=== PATIENT | female | born 1935 | race Caucasian/White ===

== ENCOUNTER 2018-01-24 06:29 | Observation (INO) | payer OTHER, BC ==
[2018-01-20 10:27] VITALS: BMI 31.0
[~2018-01-24] VITALS: Ht 172.7 cm; Wt 93.4 kg
[2018-01-24] VITALS (10 sets, daily range): BP systolic 121–178; BP diastolic 64–84; PULSE 58–65; TEMP 36.4–36.6; O2SAT 94–100; BMI 31.0
[~2018-01-24 06:29] MED LIST: ACET-1311 PO; BISA10SU38 PR; CARV12.52 PO; CEFAZOLIN 1000MG IV PUSH 7.5 ML IV SCH; CEFAZOLIN 2000MG IV PUSH 15 ML IV SCH; FENT75DI2 EX; FURO80TA63 PO; LEVO88TA3 PO; LNX125 PO; LVMI SC; MISCCAP80 PO; MOMLX PO; NITR0.4S UT; NVLG SC; PATIENT'S ALLERGY INFO NEEDS ENTERED SCH; PIPE1INJ IV; SENN-65 PO; SODIENE PR; SODIUM CHLORIDE 0.9% 1000ML 1,000 ML IV SCH; SPR25 PO; VALS320T PO; WARF2TAB PO; vancomycin hcl IV
[2018-01-24 07:14] LABS: INR 1.2 (0.9-1.1); PTT PATIENT 29.9 SECONDS (21.0-31.0)
[2018-01-24] MEDS ORDERED: vancomycin IV (07:16)
[2018-01-24 07:41] LABS: CALCIUM 8.8 mg/dl (8.5-10.1); CREATININE 2.56 mg/dl (0.60-1.20)
[2018-01-24] MEDS ORDERED: CEFAZOLIN SOD 2000MG/15 ML IV PUSH IV ONE (07:54)
--- NOTE | 2018-01-24 08:16 | History and Physical ---
History & Physical Date Jan 24, 2018. Chief Complaint Gangrene of her left second toe History of Present Illness The patient is a 82 year old female who has developed gangrene of her left second toe. It started two weeks prior and has worsened. She does complain of toe pain of the toe. She is on Vanco. 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 She also has chronic edema of the left leg. Vitals Vital Signs Past 12 Hours Date Time Temp Pulse Resp B/P (MAP) Pulse Ox O2 Delivery O2 Flow Rate FiO2 01/24/18 07:00 36.5 62 18 165/83 96 Room Air Allergies Coded Allergies: Latex (Verified Allergy, Unknown, unknown, 01/24/18) Statins (Unverified Allergy, Unknown, MYALGIAS, 01/24/18) PER PRE-ANESTHESIA QUESTIONNAIRE Uncoded Allergies: DARK GREEN VEGETABLES (Allergy, Unknown, unknown, 01/20/18) Home Medications Scheduled Carvedilol (Coreg), 1 TAB PO BID Digoxin (Digoxin), 1 TAB PO HS Fentanyl (Fentanyl), 1 PATCH EX q3days Furosemide (Lasix), 80 MG PO QAM Insulin Aspart (Novolog), 4 UNITS SC ACHS Insulin Detemir (Levemir), 40 UNITS SC HS Levothyroxine Sodium (Levothyroxine Sodium), 1 TAB PO QAM Piperacillin Sodium-Tazobactam (Piperacillin Sodium/Tazob), 3.375 GM IV TID Probiotic Product (Probiotic), 1 CAP PO BID Spironolactone (Spironolactone), 1 TAB PO QAM Valsartan (Diovan), 320 MG PO QAM Warfarin Sodium (Coumadin), 1 TAB PO HS [vancomycin ], 1,000 MG IV Q12 [vancomycin hcl], 1,000 MCG IV Q12 Scheduled PRN Acetaminophen (Tylenol), 650 MG PO Q4 PRN for Pain or Fever Bisacodyl (Dulcolax), 1 SUPP MA QD PRN for Constipation Magnesium Hydroxide (Milk of Magnesia), 30 ML PO QD PRN for Constipation Nitroglycerin (Nitrostat), 0.4 MG UT PRN PRN for Chest Pain Senna/Docusate Sod (Senokot S), 2 TAB PO QD PRN for Constipation Sodium Phosphate/Biphosphate (Fleet Enema), 1 EA MA DAILY PRN for Constipation Surgical / Medical History Hx Cardiac Surgery: Yes (pacemaker ) Hx Abdominal Surgery: Yes (cholecystectomy; NAM) Hx Cancer Surgery: Yes (total hyster) Hx Thoracic Surgery: No Hx Orthopedic: No Hx Urinary Tract Surgery: No HX Other Surgery: No Past Medical/Surgical History: Diabetes, High Cholesterol, Hypertension, Pacemaker, Thrombophlebitis, Thyroid Disease, Other (mitral regurg) Social History Smoking Status: Never Smoker Hx Tobacco Use In Past Year?: No Hx Alcohol Use - Type & Amnt: No Hx Substance Use -Type & Amnt: No Review of Systems Constitutional: No chills, No diaphoresis, No fever, No malaise, No weakness, No weight gain, No weight loss, No sweats, No fatigue, No problem reported Respiratory: No cough, No cyanosis, No VELASQUEZ, No hemoptysis, No orthopnea, No PND , No short of breath, No sputum production, No stridor, No wheezing, No dyspnea , No problem reported Cardiovascular: No chest pain, No chest tightness, No chest pressure, No palpitations, No syncope, No diaphoresis, No edema, No intermittent claudication , No orthopnea, No cyanosis, No mumur, No lightheadedness, No paroxysmal nocturnal dyspnea, No problem reported Gastrointestinal: No abdominal pain, No constipation, No diarrhea, No nausea, No vomiting, No anorexia, No appetite changes, No belching, No flatulence, No food intolerance, No hematemesis, No hemorrhoids, No hematochezia, No stool changes, No heartburn, No indigestion, No dysphagia, No rectal bleeding, No problem reported Genitourinary - Female: No dysmenorrhea, No dysuria, No hematuria, No hesitancy , No menorrhagia, No metrorrhagia, No , No rash, No urinary frequency, No urinary incontinence, No urinary retention, No urinary urgency, No vulvadynia , No vaginal bleeding, No vaginal discharge, No vaginal itching, No breast problems, No problem reported Musculoskeletal: No back pain, No gout, No joint pain, No joint swelling, No muscle pain, No muscle stiffness, No muscle weakness, No neck pain, No problem reported Neurologic: No dizziness, No weakness, No headache, No lethargy, No numbness, No paresthesia, No pre-existing deficit, No seizures, No tics, No tingling, No tremors, No vertigo, No memory loss, No LOC, No problem reported Psychiatric: No anxiety, No alcohol abuse, No auditory hallucinations, No depression, No drug abuse, No homicidal ideation, No mood changes, No suicidal ideation, No visual hallucinations, No problem reported Physical Exam Constitutional: General Apperance: overweight Level of Distress: NAD Ambulation: limited ambulation Psychiatric: Mental Status: active & alert, normal mood, normal affect Orientation: oriented except where noted, to time, to place, to person Memory: recent memory normal, remote memory normal Lungs: Auscultation: breath sounds normal Cardiovascular: Heart Auscultation: RRR Peripheral Pulses: Radial Pulse: normal on the left, normal on the right Femoral Pulse: normal on the left, normal on the right Posterior Tibialis Pulse: absent on the left, absent on the right Dorsalis Pedis Pulse: absent on the left, absent on the right Abdomen: Inspection & Palpation: soft Musculoskeletal: normal Extremities: Upper Right: no cyanosis, no edema, no varicosities, no palpable cord, no clubbing, no ulcers, no mottling Upper Left: no cyanosis, no edema, no varicosities, no palpable cord, no clubbing, no ulcers, no mottling Lower Right: no cyanosis, no edema, no varicosities, no palpable cord, no clubbing, no ulcers, no mottling Lower Left: gangrene (2nd toe and discoloration third toe. amp of first toe ) Neurologic: Cranial Nerves: grossly intact Sensation: grossly intact Assessment and Plan Imp: Gangrene of left second and third toe Plan: Patient admitted for a left foot TMA. I have discussed the risks options and benefits of the procedure with the patient. The patient understands the risks options and benefits and agrees to the procedure.
[2018-01-24] MEDS ORDERED: LIDOCAINE HCL 1% 20 ML VIAL ONE (09:16)
[2018-01-24] MEDS ORDERED: BUPIVACAINE/EPINEPHRINE 0.5% MPF 1:200,000 30 ML VIAL ONE (09:16)
[2018-01-24] MEDS ORDERED: PHENYLEPHRINE 100MCG/ML 5ML SYR ONE (09:26)
[2018-01-24] MEDS ORDERED: FENTANYL CITRATE INJ 50 MCG/1 ML 2 ML VIAL ONE ×2 (09:26→13:50)
[2018-01-24] MEDS ORDERED: PROPOFOL IV EMULSION 10 MG/ML 20 ML VIAL IV ONE (09:26)
[2018-01-24] MEDS ORDERED: ONDANSETRON INJ 2 MG/ML 2 ML VIAL ONE (09:26)
[2018-01-24] MEDS ORDERED: BUPIVACAINE 0.5 % 5 MG/1 ML PF 10ML VIAL ONE (09:32)
--- NOTE | 2018-01-24 09:40 | History & Physical Bridge Note ---
H&P Re-Evaluation Bridge Note: I have examined the patient, reviewed the History & Physical and in the interval since the performance of the History & Physical I have noted the following changes of clinical significance: No changes noted
[2018-01-24] MEDS ORDERED: DEXTROSE 50% 50 ML SYR ONE (12:02)
[2018-01-24] MEDS ORDERED: NURSING VERBAL MED ORDER STA (12:09)
[2018-01-24] MEDS ORDERED: LIDOCAINE HCL 2% 2 ML VIAL (20MG/ML) ONE (13:03)
--- NOTE | 2018-01-24 13:25 | [facility] Post Operative Brief Note ---
Immediate Operative Summary Operative Date Jan 24, 2018. Pre-Operative Diagnosis Gangrene of Left second, third toes. Post-Operative Diagnosis Gangrene of left 2nd and 3rd toes Procedure(s) Performed Left Transmetatarsal Amputation Surgeon Dr. David Swenson Fish Icer Surgeon(s) none Estimated Blood Loss 50mL Findings Consistent with Post-Op Diagnosis Specimens Permanent: A. Left 2nd, 3rd, 4th, 5th metatarsals and bone and tissue. Drains None Anesthesia Type General Complication(s) none Disposition Accompanied Pt To Recover: no Disposition: Recovery Room / PACU
[2018-01-24] MEDS ORDERED: D5W AND 1/2NSS 1,000 ML IV SCH (13:36)
[2018-01-24] MEDS ORDERED: MAGNESIUM HYDROXIDE SUSP 30 ML UDC PO PRN (13:45)
[2018-01-24] MEDS ORDERED: DOCUSATE SODIUM/SENNA 50/8.6MG TAB PO PRN (13:45)
[2018-01-24] MEDS ORDERED: ACETAMINOPHEN 325 MG TAB PO PRN (13:45)
[2018-01-24] MEDS ORDERED: MoRPHine SULFATE 4 MG/ML 1 ML CARP\\VIAL IV PRN (13:45)
[2018-01-24] MEDS ORDERED: GLUCAGON FOR INJ 1 MG VIAL SQ PRN (13:45)
[2018-01-24] MEDS ORDERED: DEXTROSE 50% 50 ML SYR IV PRN (13:45)
[2018-01-24] MEDS ORDERED: NITROGLYCERIN 0.4 MG SL PER TAB CHARGE UT PRN (13:45)
[2018-01-24] MEDS ORDERED: GLUCOSE 10 TABS/TUBE PO PRN (13:45)
[2018-01-24] MEDS ORDERED: BISACODYL 10 MG SUPP PR PRN (13:45)
[2018-01-24] MEDS ORDERED: GLUCOSE 40% GEL 15 GM TUBE PO PRN (13:45)
[2018-01-24] MEDS ORDERED: ONDANSETRON INJ 2 MG/ML 2 ML VIAL IV PRN ×2 (13:45→14:00)
--- NOTE | 2018-01-24 13:48 | [facility] Operative Report ---
Operative Report Operative Date Jan 24, 2018. Pre-Operative Diagnosis Gangrene of Left second, third toes. Post-Operative Diagnosis Gangrene of left 2nd and 3rd toes Procedure(s) Performed Left Transmetatarsal Amputation Surgeon Dr. David Swenson Science Professor Surgeon(s) none Estimated Blood Loss 50mL Findings Gangrenous changes of the second and third toe of the left foot along with osteomyelitis of the toes and head of the metatarsals. Specimens Permanent: A. Left 2nd, 3rd, 4th, 5th metatarsals and bone and tissue. Drains None Anesthesia Type General Complication(s) none Disposition no Recovery Room / PACU Indications This is an 82-year-old female with a significant peripheral vascular occlusive disease of the left lower extremity. She developed gangrene of the second and third toes of the left foot along with possible osteomyelitis of the toes. She recently underwent a great toe amputation left foot. Transmetatarsal amputation was recommended.I have discussed the risks options and benefits of the procedure with the patient. The patient understands the risks options and benefits and agrees to the procedure. Description of Procedure The patient was taken to the operating room placed in the supine position. The left foot was then prepped and draped in a sterile manner after general anesthesia was accomplished. An incision was then made just above the base of the remaining 4 toes. This was carried down along the plantar surface of the foot again just above the base of the toes. The periosteum was then pushed backward off the metatarsals. This was done after the metatarsals were dissected free from the surrounding tissue. The metatarsal were then transected using the power saw. All 4 metatarsal transected areas were in the area of very hard bone. The head of the second metatarsal and a small area of the third metatarsal appeared to be very soft bone. Once these were all removed adequate hemostasis was obtained. The wound was then closed in layers using 2-0 Vicryl for the deeper layers of 3-0 Vicryl for the subtenon's layer and anjelica for the skin. Sterile dressings were then applied to the wound. The patient left the operation room in satisfactory condition and tolerated the procedure well. All needle and sponge counts were correct at the end of the procedure. I attest to the content of the Intraoperative Record and any orders documented therein. Any exceptions are noted below.
[2018-01-24] MEDS ORDERED: ATROPINE SULFATE 0.1 MG/ML 5ML SYR IV PRN (14:00)
[2018-01-24] MEDS ORDERED: FENTANYL CITRATE INJ 50 MCG/1 ML 2 ML VIAL IV PRN (14:00)
[2018-01-24] MEDS ORDERED: PIPERACILLIN/TAZOBACTAM 4.5 GM/100ML D5W IV SCH (14:00)
[2018-01-24] MEDS ORDERED: EpHEDrine SULFATE INJ 50 MG/ML AMP IV PRN (14:00)
--- NOTE | 2018-01-24 14:15 | Anesthesiology Progress Note ---
Anesthesia Post Op Note Date & Time Jan 24, 2018 at 14:15 Vital Signs Pain Intensity: 5 Vital Signs Past 12 Hours Date Time Temp Pulse Resp B/P (MAP) Pulse Ox O2 Delivery O2 Flow Rate FiO2 01/24/18 14:05 60 16 167/75 100 Oxymask 10 01/24/18 13:55 60 16 164/74 100 Oxymask 10 01/24/18 13:45 60 16 158/70 100 Oxymask 10 01/24/18 13:35 36.9 63 16 140/72 100 Oxymask 10 01/24/18 07:00 36.5 62 18 165/83 96 Room Air Notes Mental Status: alert / awake / arousable, participated in evaluation Pt Amnestic to Procedure: Yes Nausea / Vomiting: adequately controlled Pain: adequately controlled Airway Patency, RR, SpO2: stable & adequate BP & HR: stable & adequate Hydration State: stable & adequate Anesthetic Complications: no major complications apparent
[2018-01-24] MEDS ORDERED: PIPERACILL/TAZOBAC CONSULT ACTIVE PRN (15:30)
[2018-01-24] MEDS ORDERED: MoRPHine SULFATE 2 MG/ML CARP IV PRN (15:30)
[2018-01-24] MEDS ORDERED: PIPERACILL/TAZOBAC IV 3.375 GM in NSS 100 ML IV ONE (15:45)
[2018-01-24] MEDS: CHECK FENTANYL PATCH PLACEMENT SCH (15:53)
[2018-01-24] MEDS ORDERED: IV FLUIDS COMPLETED PRN (16:00)
[2018-01-24] MEDS ORDERED: INSULIN ASPART 100 UNITS/ML 3 ML PEN SC SCH (16:00)
[2018-01-24] MEDS: OXYCODONE/ACETAMINOPHEN 5-325 TAB PO PRN ×3 (17:01→23:39)
[2018-01-24] MEDS: INSULIN HUMAN REGULAR SC SCH ×2 (18:11→21:00)
[2018-01-24] MEDS: CARVEDILOL 12.5 MG TAB PO SCH (21:00)
[2018-01-24] MEDS ORDERED: INSULIN DETEMIR FLEXPEN/FLEX TOUCH 100 UNITS/ML 3ML SC SCH (21:00)
[2018-01-24] MEDS ORDERED: WARFARIN SOD 2 MG TAB PO SCH (21:00)
[2018-01-24] MEDS ORDERED: DIGOXIN 0.125 MG TAB PO SCH (21:00)
[2018-01-24] MEDS: PIPERACILL/TAZOBAC IV 3.375 GM in NSS 100ML IV SCH (22:00)
[2018-01-24] MEDS: LACTOBACILLUS ACIDOPHILUS (FLORANEX) TAB PO SCH (22:15)
[2018-01-25] MEDS: OXYCODONE/ACETAMINOPHEN 5-325 TAB PO PRN ×3 (02:55→16:13)
[2018-01-25 03:05] VITALS: BP 111/65; PULSE 64; TEMP 36.4; O2SAT 92
[2018-01-25] MEDS ORDERED: LEVOTHYROXINE 88 MCG TAB PO SCH (06:00)
[2018-01-25] MEDS: PIPERACILL/TAZOBAC IV 3.375 GM in NSS 100ML IV SCH ×2 (06:20→13:52)
[2018-01-25 06:21] LABS: BASO % 0.2 %; BASO ABS # 0.02 K/uL (0-0.2); EOS % 0.4 %; EOS ABS # 0.03 K/uL (0-0.5); HEMATOCRIT 28.6 % (37-47); IG# 0.03 K/uL (0.00-0.02); LYMPH % 11.4 %; LYMPH ABS # 0.93 K/uL (1.2-3.4); MEAN CELL VOLUME 90.8 fL (80-100); MEAN CORPUSCULAR HEMOGLOBIN 28.6 pg (25-34); MEAN CORPUSCULAR HGB CONC 31.5 g/dl (32-36); MEAN PLATELET VOLUME 11.9 fL (7.4-10.4); MONO ABS # 0.73 K/uL (0.11-0.59); NEUT % 78.6 %; NEUT ABS # 6.41 K/uL (1.4-6.5); PLATELET COUNT 123 K/uL (130-400); RED CELL DISTRIBUTION WIDTH CV 16.5 % (11.5-14.5); RED CELL DISTRIBUTION WIDTH SD 53.9 fL (36.4-46.3); WHITE BLOOD COUNT 8.15 K/uL (4.8-10.8)
[2018-01-25 06:29] LABS: INR 1.6 (0.9-1.1)
[2018-01-25 06:59] LABS: CALCIUM 8.5 mg/dl (8.5-10.1); CREATININE 2.85 mg/dl (0.60-1.20); POTASSIUM 4.4 mmol/L (3.5-5.1)
[2018-01-25 07:05] VITALS: BP 123/72; PULSE 60; TEMP 36.4; O2SAT 92
[2018-01-25] MEDS: CHECK FENTANYL PATCH PLACEMENT SCH ×3 (08:10→16:05)
--- NOTE | 2018-01-25 08:15 | Progress Note ---
Progress Note Date of Service: Jan 25, 2018. Subjective 82 yo f with multiple medical problems, POD #1 after LLE TMA, seen in f/u today. Pt admits pain, but states is controlled with medications. Denies any other new complaints. Objective Vital Signs Vital Signs Past 12 Hours Date Time Temp Pulse Resp B/P (MAP) Pulse Ox O2 Delivery O2 Flow Rate FiO2 01/25/18 07:05 36.4 60 18 123/72 (89) 92 Room Air 01/25/18 03:05 36.4 64 18 111/65 (80) 92 Room Air 01/24/18 23:30 94 Room Air 2.0 01/24/18 23:20 36.5 60 16 122/71 (88) 94 Room Air 01/24/18 22:11 58 121/64 (83) 01/24/18 21:00 58 Exam CONST: A&O x3, NAD, obese, chronically ill appearing female CHEST: RRR lungs decreased, but ctab ABD: soft, nontender, + bs x 4 quad EXT: LLE TMA site C/D/I with anjelica. No erythema, necrosis noted. + minimal bloody drainage on dressing. Laboratory and Microbiology Results Past 24 Hours Test 01/24/18 10:11 01/24/18 11:59 01/24/18 12:22 01/24/18 13:41 Range/Units Random Vancomycin Level 18.6 mcg/ml Bedside Glucose 74 121 78 70-90 mg/dl Test 01/24/18 16:56 01/24/18 20:31 01/25/18 06:06 Range/Units Bedside Glucose 111 142 70-90 mg/dl White Blood Count 8.15 4.8-10.8 K/uL Red Blood Count 3.15 4.2-5.4 M/uL Hemoglobin 9.0 12.0-16.0 g/dL Hematocrit 28.6 37-47 % Mean Corpuscular Volume 90.8 80-100 fL Mean Corpuscular Hemoglobin 28.6 25-34 pg Mean Corpuscular Hemoglobin Concent 31.5 32-36 g/dl Platelet Count 123 130-400 K/uL Mean Platelet Volume 11.9 7.4-10.4 fL Neutrophils (%) (Auto) 78.6 % Lymphocytes (%) (Auto) 11.4 % Monocytes (%) (Auto) 9.0 % Eosinophils (%) (Auto) 0.4 % Basophils (%) (Auto) 0.2 % Neutrophils # (Auto) 6.41 1.4-6.5 K/uL Lymphocytes # (Auto) 0.93 1.2-3.4 K/uL Monocytes # (Auto) 0.73 0.11-0.59 K/uL Eosinophils # (Auto) 0.03 0-0.5 K/uL Basophils # (Auto) 0.02 0-0.2 K/uL RDW Standard Deviation 53.9 36.4-46.3 fL RDW Coefficient of Variation 16.5 11.5-14.5 % Immature Granulocyte % (Auto) 0.4 % Immature Granulocyte # (Auto) 0.03 0.00-0.02 K/uL Prothrombin Time 16.3 9.0-12.0 SECONDS Prothromb Time International Ratio 1.6 0.9-1.1 Sodium Level 140 136-145 mmol/L Potassium Level 4.4 3.5-5.1 mmol/L Chloride Level 110 98-107 mmol/L Carbon Dioxide Level 23 21-32 mmol/L Anion Gap 7.0 3-11 mmol/L Blood Urea Nitrogen 56 7-18 mg/dl Creatinine 2.85 0.60-1.20 mg/dl Est Creatinine Clear Calc Drug Dose 18.5 ml/min Estimated GFR () 17.2 Estimated GFR (Non- 14.9 BUN/Creatinine Ratio 19.8 10-20 Random Glucose 61 70-99 mg/dl Calcium Level 8.5 8.5-10.1 mg/dl ASSESSMENT and PLAN: s/p LLE TMA LLE foot infection Pt doing well post op. Will discharge today back to SNF if accepted and transportation arranged. SS working to arrange. If d/c today, will see in officei n 2 wks for staple removal.
[2018-01-25] MEDS ORDERED: ENOXAPARIN 30 MG/0.3 ML SYR SQ SCH (09:00)
[2018-01-25] MEDS ORDERED: FUROSEMIDE 80 MG TAB PO SCH (09:00)
[2018-01-25] MEDS ORDERED: VALSARTAN 80 MG TAB PO SCH (09:00)
[2018-01-25] MEDS ORDERED: SPIRONOLACTONE 25 MG TAB PO SCH (09:00)
[2018-01-25 09:01] VITALS: BP 115/64; PULSE 62
[2018-01-25] MEDS: CARVEDILOL 12.5 MG TAB PO SCH (09:14)
[2018-01-25] MEDS: LACTOBACILLUS ACIDOPHILUS (FLORANEX) TAB PO SCH (09:15)
[2018-01-25] MEDS: INSULIN HUMAN REGULAR SC SCH ×2 (09:47→13:16)
[2018-01-25] MEDS ORDERED: OXYC-57 PO (11:23)
[2018-01-25 11:27] VITALS: BP 124/73; PULSE 60; TEMP 36.4; O2SAT 95
--- NOTE | 2018-01-25 11:37 | Discharge Instructions ---
Discharge Instructions Date of Service Jan 25, 2018. Admission Reason for Admission: Left Foot Infection Discharge Discharge Diagnosis / Problem: post Left Foot Transmetatarsal Amputation, Left foot infection Discharge Goals Goal(s): Therapeutic intervention Activity Recommendations Activity Limitations: per Instructions/Follow-up section . Instructions / Follow-Up Instructions / Follow-Up 1.May shower in a chair and dry L foot wound gently. NO soaking of L foot in water. 2. WBAT with dry dressing and surgical boot on Left foot. 3.Left foot dressing to be changed daily when OOB. Cleanse with saline, then apply 4x4's and kerlix for protection when OOB. May leave open to air when in bed. 4. Elevate L foot when sitting in chair. 5. Needs follow up in office with Dr Swenson or Matilda Hughes PA-C, in 2 weeks for wound check and staple removal. Call [phone] for appt. 6. Needs outpt referral to Infectious Disease for recommendations regarding length of treatment for LLE osteomyelitis. Current Hospital Diet Patient's current hospital diet: AHA Diet (Heart Healthy), Diabetes Type 2 Diet Discharge Diet Recommended Diet: AHA Diet (Heart Healthy), Diabetes Type 2 Diet Procedures Procedures Performed: Left Transmetatarsal Amputation Pending Studies Studies pending at discharge: no Medical Emergencies . Who to Call and When: Medical Emergencies: If at any time you feel your situation is an emergency, please call 911 immediately. . Non-Emergent Contact Non-Emergency issues call your: Surgeon . "Provider Documentation" section prepared by Matilda Hughes. . [place] Drug Monitoring Program Search Results: patient reviewed within database, no issues identified
[2018-01-25 15:40] VITALS: BP 127/74; PULSE 61; TEMP 36.4; O2SAT 96
[2018-01-25 17:33] VITALS: Ht 172.7 cm; Wt 93.4 kg
[2018-01-25] MEDS ORDERED: FENTANYL PATCH REMOVE & WASTE SCH (19:59)
[2018-01-25] MEDS ORDERED: FENTANYL 75 MCG/HR TDSY TD SCH (20:00)
--- NOTE | 2018-01-28 14:03 | DISCHARGE SUMMARY ---
ADMISSION DIAGNOSES: Left second and third toe gangrene and foot infection. DISCHARGE DIAGNOSES: 1. Status post left transmetatarsal amputation. 2. Gangrene of left second and third toes and foot infection. DISCHARGE CONDITION: Stable back to her regular personal senior living. CONSULTATIONS IN THE HOSPITAL: Included none. PROCEDURES IN THE HOSPITAL: Included her left foot transmetatarsal amputation, which was performed on 01/24/2018 with an EBL of 50 mL and no significant complications. HISTORY OF PRESENT ILLNESS: Ms. Bell is an 82-year-old female who has been followed by Dr. Swenson for chronic longstanding peripheral arterial disease; however, due to a significantly reduced renal function as well as likely she had previously been asymptomatic. There was no intervention performed. The patient apparently began to have discoloration and infection of her left second toe and staff at her current residence send her to [facility]. While there, she began treatment with IV antibiotics through a PICC line and was advised to follow up with her vascular surgeon regarding her vascular status. She presented to our office complaining of worsening discoloration of her left toe and foot as well as swelling which was significant worse than her chronic edema. Ultrasound imaging had demonstrated a known SFA occlusion and popliteal occlusion on the left leg; however, that she had previously been asymptomatic. The patient was recommended to consider undergoing a completion transmetatarsal amputation of her left foot due to the fact that her great toe had been amputated in the remote past and the extensive infection of her second and third toes. The risks, benefits, alternatives were discussed with the patient, she expressed understanding and agreement to proceed. HOSPITAL COURSE: The patient was admitted for 01/24/2018 after undergoing her left foot completion transmetatarsal amputation. This was performed without significant complications. She did have an EBL of 50 mL and no other concerns. She did essentially well postoperatively. Postop day 1, her incision appeared to be in the early stages of healing. Pain was under control with oral medications. Do not appear to be significant drainage aside from a small amount of blood on the dressing and as wound edges appeared healthy, the patient was okayed for discharge to her personal senior living. She would return to the office in 2 weeks. PHYSICAL EXAMINATION: VITAL SIGNS: On day of discharge, vital signs were as follows: Temperature of 36.4, pulse of 61, respiratory rate of 16, blood pressure of 127/74 and pulse oximetry of 96% on room air. CONSTITUTIONAL: The patient is a chronically ill appearing elderly female in no acute distress. She is obese. HEAD: Normocephalic and atraumatic. EYES: EOMI. ENT: No hearing loss, rhinorrhea or pharyngeal erythema. NECK: Supple, nontender with a midline trachea without masses or crepitus. LUNGS: Demonstrates no dyspnea. They are decreased, but clear throughout. CARDIOVASCULAR: Her heart demonstrates a regular rate and rhythm without murmurs. Her peripheral pulses are full and equal in all extremities unless otherwise noted, specifically they were normal in her carotid, brachial and radial pulses. Her femoral pulses are +2. Her distal pulses are nonpalpable bilaterally. ABDOMEN: Soft and nontender with normoactive bowel sounds in all 4 quadrants without guarding or rebound. There is no flank or CVA tenderness. MUSCULOSKELETAL: Demonstrates normal tone and strength for age. Bilateral upper extremities demonstrate no cyanosis, edema, clubbing, varicosities or ulcers. Bilateral lower extremities do demonstrate some edema which is chronic as well as some varicose veins and skin changes consistent with chronic venous insufficiency. In addition, her left foot transmetatarsal amputation site is well approximated with anjelica and healing appropriately for postop day 1. There is mild amount of bloody drainage on the dressing. There does not appear to be a large pocket of hematoma in the area. Wound edges appear healthy. There is no necrosis. There is no significant erythema at this time. DIET: Should be low-cholesterol AHA and renal diet. MEDICATIONS: Reconciled on chart and as per her discharge instructions. FOLLOWUP: Should with Dr. Swenson or his PA Matilda Hughes within 2 weeks for reevaluation and removal of her anjelica. The patient was advised to call the office with any other questions or concerns.
== END 2018-01-25 18:10 ==
LOC: C.ACU 06:29 → C.MSW 09:51 → ENRESERV 13:52
PROVIDERS: ADMIT Surgery Vascular Surgery; ATTEND Surgery Vascular Surgery
DX: M86.172 Other acute osteomyelitis, left ankle and foot (principal); I48.91 Unspecified atrial fibrillation; I96 Gangrene, not elsewhere classified; I11.0 Hypertensive heart disease with heart failure; I50.9 Heart failure, unspecified; E11.52 Type 2 diabetes mellitus with diabetic peripheral angiopathy with gangrene; E07.9 Disorder of thyroid, unspecified; E78.00 Pure hypercholesterolemia, unspecified; I77.1 Stricture of artery; I34.0 Nonrheumatic mitral (valve) insufficiency; E66.9 Obesity, unspecified; Z88.8 Allergy status to other drugs, medicaments and biological substances; Z91.040 Latex allergy status; Z91.018 Allergy to other foods; Z79.899 Other long term (current) drug therapy; Z79.4 Long term (current) use of insulin; Z79.01 Long term (current) use of anticoagulants; Z95.0 Presence of cardiac pacemaker; Z90.49 Acquired absence of other specified parts of digestive tract; Z90.710 Acquired absence of both cervix and uterus